=== PATIENT | male | born 1945 | race Caucasian/White ===

== ENCOUNTER 2019-11-20 20:31 | Emergency (ER) | payer OTHER, SELFPAY ==
[2019-11-20] VITALS (10 sets, daily range): BP systolic 104–113; BP diastolic 56–73; PULSE 71–87; RESP 18–25; TEMP 36.8; O2SAT 92–95; BMI 26.0
[2019-11-20] MEDS: SODIUM CHLORIDE 0.9% 2,328 ML 776 ML IV (22:00)
[2019-11-20 22:05] LABS: Lactate (Lactic Acid) 1.2 mmol/L (0.7-2.1)
[2019-11-20 22:06] LABS: Add Manual Diff / Slide Review YES; Hematocrit 41.6 % (41-53); Hemoglobin 14.1 g/dL (13.5-17.5); Mean Corpuscular HGB Conc 33.9 % (30-36); Mean Corpuscular Hemoglobin 31.8 PG (26-34); Mean Corpuscular Volume 93.7 fL (80-100); Platelet Count 133 X10^3/uL (150-400); Red Blood Cell Count 4.43 X10^6/uL (4.5-5.9); Red Cell Distribution Width 13.1 % (11.6-14.8)
[2019-11-20 22:09] LABS: Alanine Aminotransferase 20 IU/L (<50); Albumin 3.7 g/dL (3.5-5.0); Albumin Globulin Ratio 1.2 (1.0-2.8); Alkaline Phosphatase 86 U/L (38-126); Aspartate Aminotransferase 29 IU/L (17-59); Bilirubin Total 1.5 mg/dL (0.2-1.3); Blood Urea Nitrogen 24 mg/dL (9-20); Calcium 9.2 mg/dL (8.4-10.2); Carbon Dioxide 20 mmol/L (22-32); Chloride 102 mmol/L (98-107); Estimated Glomerular Filt Rate > 60.0 mL/min (>60); Globulin 3.2 g/dL (1.7-4.1); Glucose 128 mg/dL (80-110); HEMOLYSIS < 15 (0-50); Potassium 3.6 mmol/L (3.4-5.1); Sodium 132 mmol/L (137-145); Total Protein 6.9 g/dL (6.3-8.2)
--- NOTE | 2019-11-20 22:35 | ED_ITS ---
HPI - Fever General Chief Complaint: Fever Stated Complaint: hot/cold, shakes Time Seen by Provider: 11/20/19 21:00 Source: patient and family Mode of arrival: Wheelchair Limitations: no limitations History of Present Illness HPI Narrative: 73-year-old male nonsmoker with noncontributory medical history presents with his in the chief complaint of shaking and chills in the absence of measured fever since yesterday. He has had urinary frequency and urgency but denies other symptoms such as runny nose, sore throat or cough. He has had no chest pain or shortness of breath. He denies nausea, vomiting or carmina rrhea. He denies any history of the same. He is visiting from [place], appear to use his bow and elected to come back to [place] when he started feeling poorly. He states the rigors have been controlled with Tylenol but return once the Tylenol wears off, approximately every 4-6 hours. MD complaint: other Onset (ago): day(s) Temperature Source: subjective Associated symptoms: chills and rigors Relieving factors: nothing Exacerbating factors: nothing Treatments prior to arrival fever: none Related Data Previous Rx's Medication Instructions Recorded cephalexin [Keflex] 500 mg PO QID 7 Days #28 cap 11/20/19 Allergies Allergy/AdvReac Type Severity Reaction Status Date / Time No Known Drug Allergies Allergy Verified 11/20/19 21:01 Review of Systems Constitutional Constitutional: Reports chills, Denies fatigue, Denies fever(s), Denies frequent falls, Denies lethargy and Denies weakness Eyes Eyes: Denies change in vision, Denies eye discharge, Denies irritation and Denies loss of vision ENT Ears, Nose, Mouth, and Throat: Denies change in voice, Denies dizziness, Denies neck pain, Denies sore throat and Denies throat swelling Cardiovascular Cardiovascular: Denies chest pain, Denies irregular heart rhythm, Denies lightheadedness, Denies palpitations, Denies dyspnea, Denies dyspnea on exertion and Denies orthopnea Respiratory Respiratory: Denies cough, Denies dyspnea, Denies dyspnea on exertion and Denies wheezing Gastrointestinal Gastrointestinal: Denies abdominal pain, Denies change in bowel habits, Denies diarrhea, Denies nausea and Denies vomiting Genitourinary Genitourinary: Reports difficulty urinating and Reports dysuria Genitourinary: Reports dysuria Musculoskeletal Musculoskeletal: Denies neck pain and Denies numbness Integumentary/Breasts Skin/Breast: Denies pruritus, Denies erythema, Denies rash and Denies wounds Neurologic Neurologic: Denies behavioral changes, Denies confusion, Denies dizziness, Denies frequent falls, Denies loss of vision, Denies numbness and Denies weakness Psychiatric Psychiatric: Denies anxiety, Denies behavioral changes, Denies confusion, Denies depression, Denies homicidal ideation and Denies suicidal ideation Endocrine Endocrine: Denies fatigue, Denies flushing and Denies palpitations Hematologic/Lymphatic Hematologic/Lymphatic: Denies easy bruising Allergic/Immunologic Allergic/Immunologic: Denies urticaria, Denies throat swelling and Denies wheezing Patient History Social History Smoking Status: Never smoker Smoking Status: Never smoker alcohol intake frequency: 0-2 drinks per day Substance Use Type: does not use Exam Narrative Exam Narrative: GENERAL: [73] year old patient appears stated age. Well- nourished, well-developed patient, in mild distress. HEAD: Atraumatic. Normocephalic. EYES: Pupils equal round and reactive. Extraocular motions intact. No scleral icterus. No injection or drainage. ENT: Nose without bleeding, purulent drainage. Throat without erythema, tonsillar hypertrophy or exudate. Airway patent. NECK: Trachea midline. Non tender CARDIOVASCULAR: Regular rate and rhythm without murmurs, gallops, or rubs. RESPIRATORY: Clear to auscultation. Breath sounds equal bilaterally. No wheezes, rales, or rhonchi. GASTROINTESTINAL: Abdomen soft, non-tender, nondistended. EXTREMITIES: No edema or joint tenderness. BACK: Nontender without deformity or crepitance. No flank tenderness. NEURO: AOx3. SKIN: No rash or erythema of visible areas Initial Vital Signs Initial Vital Signs: Vital Signs Pulse Oximetry 92 11/20/19 20:50 Course Orders Ordered: ED Orders 11/20/19 21:23 Complete Blood Count AUTO DIFF Stat Comprehensive Metabolic Panel Stat Lactate (Lactic Acid) Stat Procalcitonin Stat 11/20/19 22:05 Blood Culture Stat 11/20/19 23:00 Urinalysis and Microscopic Stat Urine Culture Stat Sodium Chloride (Normal Saline 0.9%) 2,328 mls @ 776 mls/hr 30 ml/kg infuse over 3 hr (2328 ml) IV NOW ONE Stop: 11/21/19 00:25 Last Admin: 11/20/19 22:00 Dose: 776 mls/hr Documented by: LUZ ELENA Discontinued Medications Ceftriaxone Sodium/Dextrose (Rocephin) 1 gm in 50 mls @ 100 mls/hr IV NOW ONE Stop: 11/20/19 23:59 Last Admin: 11/20/19 23:36 Dose: 100 mls/hr Documented by: HOLLY Ketorolac Tromethamine (Toradol) 15 mg IV NOW ONE Stop: 11/20/19 23:43 Last Admin: 11/20/19 23:48 Dose: 15 mg Documented by: HOLLY Vital Signs Vital signs: Vital Signs - 8 hr 11/20/19 20:50 11/20/19 20:51 11/20/19 20:56 Temperature 98.3 F Pulse Rate 87 86 Respiratory Rate 18 Blood Pressure 113/61 113/61 Pulse Oximetry 92 92 92 11/20/19 21:00 11/20/19 21:30 11/20/19 22:00 Temperature Pulse Rate 82 75 73 Respiratory Rate Blood Pressure 108/58 L Pulse Oximetry 94 95 93 11/20/19 22:06 11/20/19 22:30 11/20/19 23:00 Temperature Pulse Rate 71 71 74 Respiratory Rate 24 21 25 H Blood Pressure 104/73 105/56 L 108/60 Pulse Oximetry 95 95 93 11/20/19 23:30 Temperature Pulse Rate 72 Respiratory Rate 23 Blood Pressure 106/59 L Pulse Oximetry 95 MDM - Fever Lab Data Result diagrams: 11/20/19 21:23 11/20/19 21:23 Labs: Lab Results 11/20/19 11/20/19 11/20/19 Range/Units 21:23 21:23 21:23 WBC 8.0 (4.5-11.0) X10^3/uL RBC 4.43 L (4.5-5.9) X10^6/uL Hgb 14.1 (13.5-17.5) g/dL Hct 41.6 (41-53) % MCV 93.7 (80-100) fL MCH 31.8 (26-34) PG MCHC 33.9 (30-36) % RDW 13.1 (11.6-14.8) % Plt Count 133 L (150-400) X10^3/uL Neut % (Auto) Not Reportable Lymph % (Auto) Not Reportable Wright % (Auto) Not Reportable Eos % (Auto) Not Reportable Baso % (Auto) Not Reportable Lymph # (Auto) Not Reportable Wright # (Auto) Not Reportable Baso # (Auto) Not Reportable Total Counted 100 Seg Neutrophils % 80.0 H (38-70) % Band Neutrophils % 13.0 H (3-7) % Lymphocytes % (Manual) 2.0 L (25-45) % Monocytes % (Manual) 5.0 (2-11) % Neutrophils # (Manual) 7440 H (4869-3144) /uL RBC Morphology See below Sodium 132 L (137-145) mmol/L Potassium 3.6 (3.4-5.1) mmol/L Chloride 102 (98-107) mmol/L Carbon Dioxide 20 L (22-32) mmol/L BUN 24 H (9-20) mg/dL Creatinine 1.00 (0.66-1.25) mg/dL Estimated GFR > 60.0 (>60) mL/min BUN/Creatinine Ratio 24.0 H (6-22) Glucose 128 H (80-110) mg/dL Lactate (0.7-2.1) mmol/L Calcium 9.2 (8.4-10.2) mg/dL Total Bilirubin 1.5 H (0.2-1.3) mg/dL AST 29 (17-59) IU/L ALT 20 (<50) IU/L Alkaline Phosphatase 86 (38-126) U/L Total Protein 6.9 (6.3-8.2) g/dL Albumin 3.7 (3.5-5.0) g/dL Globulin 3.2 (1.7-4.1) g/dL Albumin/Globulin Ratio 1.2 (1.0-2.8) Procalcitonin 1.41 H (<0.5) ng/mL Urine Color Urine Appearance Urine pH (4.5-8.0) Ur Specific Elbert (1.000-1.035) Urine Protein (Negative) Urine Glucose (UA) (Negative) g/dL Urine Ketones (NEGATIVE) Urine Occult Blood (Negative) Urine Nitrate (Negative) Urine Bilirubin (NEGATIVE) Urine Urobilinogen (0.2) E.U./dL Ur Leukocyte Esterase (NEGATIVE) Urine RBC (0-5/HPF) Urine WBC (0-5/HPF) Ur Squamous Epith Cells (0-5/HPF) Urine Bacteria (None) Ur Culture Indicated? COVID-19 PCR (Negative) 11/20/19 11/20/19 11/20/19 Range/Units 21:23 21:23 23:00 WBC (4.5-11.0) X10^3/uL RBC (4.5-5.9) X10^6/uL Hgb (13.5-17.5) g/dL Hct (41-53) % MCV (80-100) fL MCH (26-34) PG MCHC (30-36) % RDW (11.6-14.8) % Plt Count (150-400) X10^3/uL Neut % (Auto) Lymph % (Auto) Wright % (Auto) Eos % (Auto) Baso % (Auto) Lymph # (Auto) Wright # (Auto) Baso # (Auto) Total Counted Seg Neutrophils % (38-70) % Band Neutrophils % (3-7) % Lymphocytes % (Manual) (25-45) % Monocytes % (Manual) (2-11) % Neutrophils # (Manual) (8394-0296) /uL RBC Morphology Sodium (137-145) mmol/L Potassium (3.4-5.1) mmol/L Chloride (98-107) mmol/L Carbon Dioxide (22-32) mmol/L BUN (9-20) mg/dL Creatinine (0.66-1.25) mg/dL Estimated GFR (>60) mL/min BUN/Creatinine Ratio (6-22) Glucose (80-110) mg/dL Lactate 1.2 (0.7-2.1) mmol/L Calcium (8.4-10.2) mg/dL Total Bilirubin (0.2-1.3) mg/dL AST (17-59) IU/L ALT (<50) IU/L Alkaline Phosphatase (38-126) U/L Total Protein (6.3-8.2) g/dL Albumin (3.5-5.0) g/dL Globulin (1.7-4.1) g/dL Albumin/Globulin Ratio (1.0-2.8) Procalcitonin (<0.5) ng/mL Urine Color Yellow Urine Appearance Clear Urine pH 5.5 (4.5-8.0) Ur Specific Elbert <=1.005 (1.000-1.035) Urine Protein Trace H (Negative) Urine Glucose (UA) Negative (Negative) g/dL Urine Ketones 1+ H (NEGATIVE) Urine Occult Blood 1+ H (Negative) Urine Nitrate Positive (Negative) Urine Bilirubin Negative (NEGATIVE) Urine Urobilinogen 0.2 (0.2) E.U./dL Ur Leukocyte Esterase 1+ H (NEGATIVE) Urine RBC 0-1/hpf (0-5/HPF) Urine WBC 10-30/hpf H (0-5/HPF) Ur Squamous Epith Cells 1-5 /hpf (0-5/HPF) Urine Bacteria Many (>30) H (None) Ur Culture Indicated? Specimen cultured COVID-19 PCR Negative (Negative) MDM Narrative Medical decision making narrative: Patient with very reassuring physical exam, labs and vital signs. He is not septic nor dizzy a significant risk for immun ocompromise. Urine seems to be the clear source. He is given antibiotics here, prescription for the week, return precautions and has had his questions answered to his apparent satisfaction. He is in complete understanding and agreement with the plan Discharge Plan Departure Patient Disposition: Home Clinical Impression: Acute pyelonephritis Instructions: DI for Kidney Infection, DI for Urinary Tract Infection (UTI), DI for Fever (Symptom) -- Adult Activity Restrictions/Additional Instructions: *You have been diagnosed with [UTI with rigors and likely pyelonephritis] *What to do: *Take medications as directed *Follow up with your primary care provider in 2-3 days, call for an appointment. Let them know you were seen in the Emergency Department and that we ask that you be seen in follow up *Return to ER if you should have any new, worsening or concerning symptoms Prescriptions: New cephalexin [Keflex] 500 mg capsule 500 mg PO QID 7 Days Qty: 28 RF: 0
[2019-11-20 22:38] LABS: Procalcitonin 1.41 ng/mL (<0.5)
[2019-11-20 22:52] LABS: COVID19 -Nasal RAPID Negative (Negative)
[2019-11-20 23:10] LABS: Appearance Urine UA CLEAR; Bilirubin Urine UA NEGATIVE (NEGATIVE); Color Urine UA YELLOW; Glucose Urine UA NEGATIVE (Negative); Ketones Urine UA 1+ (NEGATIVE); Leukocyte Esterase Urine UA 1+ (NEGATIVE); Nitrite Urine UA POSITIVE (Negative); Occult Blood Urine UA 1+ (Negative); Protein Urine UA TRACE (Negative); Specific Gravity Urine UA <=1.005 (1.000-1.035); Urobilinogen Urine UA 0.2 E.U./dL (0.2); pH Urine UA 5.5 (4.5-8.0)
[2019-11-20 23:28] LABS: Bacteria Urine Many (>30); Culture Indicated Urine Specimen Cultured; RBC Urine 0-1/HPF (0-5/HPF); Squamous Epithelial Cell Urine 1-5 /HPF (0-5/HPF); WBC Urine 10-30/HPF (0-5/HPF)
[2019-11-20] MEDS: CEFTRIAXONE 1 GM/50 ML FROZ.PIGGY IV (23:36)
[2019-11-20 23:40] LABS: Neutrophils Absolute Manual 7440 /uL (3000-5900); Total Cells Counted 100
[2019-11-20] MEDS: KETOROLAC 60 MG/2 ML VIAL 15 MG IV (23:48)
[2019-11-21] VITALS: BP 109/56; PULSE 64; RESP 22; O2SAT 94
[2019-11-21 00:30] VITALS: BP 105/58; PULSE 63; RESP 20; O2SAT 95
[2019-11-21 01:42] VITALS: BP 108/58; PULSE 66; RESP 18; O2SAT 96
== END 2019-11-21 01:43 | disposition home or self-care (01) ==
PROVIDERS: Emergency Provider Emergency Medicine
DX: N10 Acute pyelonephritis (principal); R30.0 Dysuria; R50.9 Fever, unspecified
CPT/HCPCS: 36415; 80053; 81001; 83605; 84145; 85025; 87040; 87077; 87086; 87186; 87635; 96361; 96365; 96375; 99284; J1885

== ENCOUNTER 2019-11-21 12:48 | Observation (INO) | payer OTHER, SELFPAY ==
[2019-11-21] VITALS (17 sets, daily range): BP systolic 101–121; BP diastolic 50–67; PULSE 55–86; RESP 17–31; TEMP 36.5–39.2; O2SAT 92–98; BMI 26.0
--- NOTE | 2019-11-21 13:55 | PC.NURSE ---
patient was discharged this morning and came back today because he began having another episode of chills, sweating, and uncontrollable shaking.
[2019-11-21 14:29] LABS: Add Manual Diff / Slide Review NO; Basophils Absolute Auto 0 /uL (0-100); Basophils Percent Auto 0.4 % (0-2); Eosinophils Absolute Auto 0 /uL (0-450); Eosinophils Percent Auto 0.4 % (2-4); Hemoglobin 13.4 g/dL (13.5-17.5); Lymphocytes Absolute Auto 300 /uL (1100-4500); Lymphocytes Percent Auto 7.6 % (25-40); Mean Corpuscular HGB Conc 33.4 % (30-36); Mean Corpuscular Hemoglobin 31.3 PG (26-34); Mean Corpuscular Volume 93.6 fL (80-100); Monocytes Absolute Auto 300 /uL (0-900); Monocytes Percent Auto 6.4 % (3-14); Neutrophils Absolute Auto 3500 /uL (1500-7000); Neutrophils Percent Auto 85.2 % (50-75); Platelet Count 103 X10^3/uL (150-400); Red Blood Cell Count 4.27 X10^6/uL (4.5-5.9); Red Cell Distribution Width 13.2 % (11.6-14.8); White Blood Cell Count 4.1 X10^3/uL (4.5-11.0)
[2019-11-21] MEDS: SODIUM CHLORIDE 0.9% 1,000 ML 1000 ML IV ×2 (14:33→15:57)
[2019-11-21 14:34] LABS: Lactate (Lactic Acid) 2.2 mmol/L (0.7-2.1)
[2019-11-21 14:35] LABS: Alanine Aminotransferase 19 IU/L (<50); Albumin 3.4 g/dL (3.5-5.0); Albumin Globulin Ratio 1.1 (1.0-2.8); Alkaline Phosphatase 86 U/L (38-126); Aspartate Aminotransferase 32 IU/L (17-59); BUN Creatinine Ratio 27.1 (6-22); Bilirubin Total 1.1 mg/dL (0.2-1.3); Blood Urea Nitrogen 23 mg/dL (9-20); Calcium 8.7 mg/dL (8.4-10.2); Carbon Dioxide 20 mmol/L (22-32); Chloride 103 mmol/L (98-107); Estimated Glomerular Filt Rate > 60.0 mL/min (>60); Globulin 3.2 g/dL (1.7-4.1); Glucose 101 mg/dL (80-110); HEMOLYSIS < 15 (0-50); Potassium 3.8 mmol/L (3.4-5.1); Sodium 133 mmol/L (137-145); Total Protein 6.6 g/dL (6.3-8.2)
[2019-11-21] MEDS: CEFEPIME 2 GM in SODIUM CHLORIDE 0.9% 100 ML 200 ML IV (14:37)
[2019-11-21 15:01] LABS: Appearance Urine UA CLEAR; Bilirubin Urine UA NEGATIVE (NEGATIVE); Color Urine UA YELLOW; Glucose Urine UA NEGATIVE (Negative); Ketones Urine UA 3+ (NEGATIVE); Leukocyte Esterase Urine UA 1+ (NEGATIVE); Nitrite Urine UA NEGATIVE (Negative); Occult Blood Urine UA TRACE-LYSED (Negative); Protein Urine UA 1+ (Negative); Urobilinogen Urine UA 0.2 E.U./dL (0.2)
[2019-11-21 15:21] LABS: Amorphous Sediment Urine 2+; RBC Urine 0-1/HPF (0-5/HPF); Squamous Epithelial Cell Urine 1-5 /HPF (0-5/HPF); WBC Urine 30-100/HPF (0-5/HPF)
[2019-11-21 15:22] LABS: Bacteria Urine Moderate (10-30); Culture Indicated Urine Specimen Cultured; Granular Casts Urine 1-5/LPF; Mucus Urine 2+ (Negative)
--- NOTE | 2019-11-21 15:30 | ED_ITS ---
HPI - Male Genitourinary General Chief complaint: Urogenital-Male Stated complaint: here lastnight/ drip antibiotic/ cold Time Seen by Provider: 11/21/19 13:40 Source: patient Mode of arrival: Wheelchair Limitations: physical limitation History of Present Illness HPI Narrative: CC: Rigors with sudden onset of weakness. HPI: The patient is a 73-year-old male who was seen in the emergency department and diagnosed to have pyelonephritis. He was on his way to the pharmacy when he developed cold chills with shaking rigors. The patient was administered Rocephin arm for his urinary tract infection. He denied get his prescriptions filled. The patient in the last 2 days has had 4 episodes of shaking chills and rigors with shivering for a long period of time the patient states he had difficulty in becoming warm. His [place] it test was negative when seen in the emergency department last night. He has feltfeverish, with chills sweats and rigors. He has had minimal headache. He has had shortness of breath without any cough or chest pain. He has had no palpitations dizziness or felt faint. He has had no significant back ache. He has had intermittent diarrhea or loose stools that were the consistency of toothpaste. He has had no nausea or vomiting. He complains of increased urinary frequency urgency and dysuria. The patient when coming back to the hospital was so weak he did not feel that he cou ld walk all the way from the car to the hospital. He denies having any allergies. He has had no incontinence of urine. Related Data Home Medications Medication Instructions Recorded Confirmed rosuvastatin 5 mg PO DAILY 11/21/19 11/21/19 Allergies Allergy/AdvReac Type Severity Reaction Status Date / Time No Known Drug Allergies Allergy Verified 11/20/19 21:01 Review of Systems Review of Systems Narrative: Patient's review of systems were all negative except for those mentioned in the history of present illness. Patient History Social History household members: spouse Smoking Status: Never smoker Smoking Status: Never smoker alcohol intake frequency: 0-2 drinks per day Substance Use Type: does not use Exam Narrative Exam Narrative: PHYSICAL EXAM: CONSTITUTIONAL: Awake, Alert, Oriented, Coherent, Cooperative in NAD. The patient is mildly diaphoretic and his skin is very hot without erythema or flushing appreciated. There is no skin rash appreciated. HEAD: AT/NC EENT: PERRL, FROM of eyes, no icterus. NOSE:No epistaxis or nasal drainage MOUTH:Oral mucosa is moist and pink, NECK: Supple, no obvious JVD, Trachea is midline without stridor, no palpable LN. SPINE: Palpation of the cervical, Thoracic, Lumbar or Sacral spine reveals no gross deformity or tenderness. No CVA tenderness. THORAX: No deformity, retractions, chest wall tenderness. LUNGS: Clear, symmetrical breath sounds without respiratory distress. HEART: Normal heart tones, regular rhythm mildly tachycardic with a grade 1/6 systolic murmur along the left sternal border. ABDOMEN: Soft, non-tender, normal bowel sounds without guarding, rebound, rigidity or palpable mass. The patient has an inguinal hernia scar in his left groin that is without erythema or warmth and minimal tenderness to palpation without any palpable mass. LYMPHATIC: no palpable lymph nodes or spleen. EXTREMITIES: No edema, deformity, tenderness or cyanosis. SKIN: No rash, bruising, petechiae or purpura. The skin over the patient's back is very warm and diaphoretic NEURO: Awake, alert, oriented, conversive, cranial nerves II-XII are symmetrical , moves all 4 extremities and is ambulatory. MENTAL HEALTH: Does not appear anxious or depressed. Initial Vital Signs Initial Vital Signs: Vital Signs Temperature 102.6 F H 11/21/19 12:56 Respiratory Rate 28 H 11/21/19 12:56 Pulse Oximetry 96 11/21/19 12:56 Course Course Course Narrative: 1530: No costovertebral angle tenderness. The patient has a grade 1/6 systolic ejection murmur along the left sternal border. Patient is profusely diaphoretic and his skin is extremely hot. The patient is being treated as though he is septic with an elevated lactic acid of 2.2. A call will be placed to Dr. Herrera the hospitalist on-call to discuss admitting the patient observation status. At the present time he is having no pain or discomfort. The patient had a hernia repair in his left groin in September 1551: I discussed the patient with Dr. Mahoney who agrees to admit the patient observation status if the CT scan does not reveal that he has any abscess involving his kidneys or his pelvis and abdomen. 1705: The patient's CT of the abdomen has been completed however the report per Radiology remains pending. 174: I a.m. unable to obtain the report from PACS concerning the CT of the patient's abdomen. I spoke directly with the radiologist who states that there was no evidence of hydronephrosis or intra-abdominal pelvic abscess. There were some inflammatory changes noted in the patient's left inguinal area which corresponds to the area of his inguinal herniorrhaphy which was repaired in September 28. There is no evidence of cellulitis at this time on physical exam. His hernia scar is firm and mildly tender. Orders Ordered: ED Orders 11/21/19 13:53 CRP [C-Reactive Protein Quant] Stat Complete Blood Count AUTO DIFF Stat Comprehensive Metabolic Panel Stat Erythrocyte Sedimentation Rate Stat Lactate (Lactic Acid) Stat Procalcitonin Stat 11/21/19 14:40 Blood Culture Stat 11/21/19 14:43 Urinalysis and Microscopic Stat Urine Culture Stat 11/21/19 15:53 CT abdomen pelvis w con Stat Acetaminophen (Tylenol) 650 mg PO Q4HR PRN PRN Reason: Fever/Mild Pain (1-3) Al Hydrox/Mg Hydrox/Simethicone (Maalox Plus) 30 ml PO Q6HR PRN PRN Reason: Dyspepsia Bisacodyl (Dulcolax) 10 mg MI DAILY PRN PRN Reason: Constipation Calcium Carbonate (Tums) 1,000 mg PO Q4HR PRN PRN Reason: Dyspepsia Docusate Sodium (Colace) 100 mg PO BID PRN PRN Reason: Constipation Enoxaparin Sodium (Lovenox) 40 mg SUBCUT DAILY RICK Meropenem (Merrem) 1 gm in 50 mls @ 100 mls/hr IV Q8H RICK Sodium Chloride (Normal Saline 0.9%) 1,000 mls @ 100 mls/hr IV CONT RICK Ketorolac Tromethamine (Toradol) 15 mg IV Q6HR PRN PRN Reason: Pain, Moderate (4-6) Stop: 11/26/19 19:44 Naloxone HCl (Narcan) 0.2 mg IV Q2MIN PRN PRN Reason: Opiate Reversal Ondansetron HCl (Zofran) 4 mg IV Q8HR PRN PRN Reason: Nausea And Vomiting Discontinued Medications Cefepime HCl 2 gm/ Sodium (Chloride) 100 mls @ 200 mls/hr IV NOW ONE Stop: 11/21/19 14:15 Last Infusion: 11/21/19 15:14 Dose: 0 mls/hr Documented by: LUZ ELENA Admin: 11/21/19 14:37 Dose: 200 mls/hr Documented by: LUZ ELENA Sodium Chloride (Normal Saline 0.9%) 1,000 mls @ 1,000 mls/hr IV BOLUS ONE Stop: 11/21/19 15:13 Last Infusion: 11/21/19 15:56 Dose: 0 mls/hr Documented by: LUZ ELENA Admin: 11/21/19 14:33 Dose: 1,000 mls/hr Documented by: LUZ ELENA Sodium Chloride (Normal Saline 0.9%) 1,000 mls @ 1,000 mls/hr IV BOLUS ONE Stop: 11/21/19 16:03 Last Infusion: 11/21/19 18:11 Dose: 0 mls/hr Documented by: LUZ ELENA Admin: 11/21/19 15:57 Dose: 1,000 mls/hr Documented by: LUZ ELENA Sodium Chloride (Normal Saline 0.9%) 1,000 mls @ 150 mls/hr IV CONT RICK Last Admin: 11/21/19 16:00 Dose: Not Given Documented by: LUZ ELENA Sodium Chloride (Normal Saline 0.9%) 1,000 mls @ 150 mls/hr IV CONT RICK Last Infusion: 11/21/19 18:12 Dose: 0 mls/hr Documented by: LUZ ELENA Admin: 11/21/19 17:24 Dose: 150 mls/hr Documented by: LUZ ELENA Meropenem (Merrem) 1 gm in 50 mls @ 100 mls/hr IV Q8H RICK Last Admin: 11/21/19 20:21 Dose: Not Given Documented by: ANGELA Vital Signs Vital signs: Vital Signs - 8 hr 11/21/19 12:56 11/21/19 13:41 11/21/19 14:00 Temperature 102.6 F H Pulse Rate 86 83 Respiratory Rate 28 H 27 H 23 Blood Pressure Pulse Oximetry 96 93 93 11/21/19 14:30 11/21/19 15:00 11/21/19 15:25 Temperature Pulse Rate 79 79 Respiratory Rate 27 H 28 H Blood Pressure 101/54 L 107/54 L Pulse Oximetry 93 92 96 11/21/19 15:30 11/21/19 16:18 11/21/19 16:30 Temperature Pulse Rate 74 74 79 Respiratory Rate 25 H 30 H 31 H Blood Pressure 107/56 L 114/55 L Pulse Oximetry 96 95 11/21/19 16:31 11/21/19 17:00 11/21/19 17:30 Temperature Pulse Rate 76 68 69 Respiratory Rate 26 H 19 23 Blood Pressure 121/55 L 111/59 L 118/56 L Pulse Oximetry 98 96 97 11/21/19 18:00 Temperature Pulse Rate 55 L Respiratory Rate 21 Blood Pressure 107/59 L Pulse Oximetry 96 MDM - Male Genitourinary Medical Records Attestation: I reviewed the patient's medical records. Lab Data Attestation: I reviewed the patient's lab results. Result diagrams: 11/21/19 13:53 11/21/19 13:53 Labs: Lab Results 11/21/19 11/21/19 11/21/19 Range/Units 13:53 13:53 13:53 WBC 4.1 L (4.5-11.0) X10^3/uL RBC 4.27 L (4.5-5.9) X10^6/uL Hgb 13.4 L (13.5-17.5) g/dL Hct 40.0 L (41-53) % MCV 93.6 (80-100) fL MCH 31.3 (26-34) PG MCHC 33.4 (30-36) % RDW 13.2 (11.6-14.8) % Plt Count 103 L (150-400) X10^3/uL Neut % (Auto) 85.2 H (50-75) % Lymph % (Auto) 7.6 L (25-40) % [place] % (Auto) 6.4 (3-14) % Eos % (Auto) 0.4 L (2-4) % Baso % (Auto) 0.4 (0-2) % Neut # (Auto) 3500 (7495-0185) /uL Lymph # (Auto) 300 L (2382-9070) /uL [place] # (Auto) 300 (0-900) /uL Eos # (Auto) 0 (0-450) /uL Baso # (Auto) 0 (0-100) /uL ESR (0-15) MM/HR Sodium 133 L (137-145) mmol/L Potassium 3.8 (3.4-5.1) mmol/L Chloride 103 (98-107) mmol/L Carbon Dioxide 20 L (22-32) mmol/L BUN 23 H (9-20) mg/dL Creatinine 0.85 (0.66-1.25) mg/dL Estimated GFR > 60.0 (>60) mL/min BUN/Creatinine Ratio 27.1 H (6-22) Glucose 101 (80-110) mg/dL Lactate 2.2 H (0.7-2.1) mmol/L Calcium 8.7 (8.4-10.2) mg/dL Total Bilirubin 1.1 (0.2-1.3) mg/dL AST 32 (17-59) IU/L ALT 19 (<50) IU/L Alkaline Phosphatase 86 (38-126) U/L C-Reactive Protein (<1.0) mg/dL Total Protein 6.6 (6.3-8.2) g/dL Albumin 3.4 L (3.5-5.0) g/dL Globulin 3.2 (1.7-4.1) g/dL Albumin/Globulin Ratio 1.1 (1.0-2.8) Procalcitonin (<0.5) ng/mL Urine Color Urine Appearance Urine pH (4.5-8.0) Ur Specific [place] (1.000-1.035) Urine Protein (Negative) Urine Glucose (UA) (Negative) g/dL Urine Ketones (NEGATIVE) Urine Occult Blood (Negative) Urine Nitrate (Negative) Urine Bilirubin (NEGATIVE) Urine Urobilinogen (0.2) E.U./dL Ur Leukocyte Esterase (NEGATIVE) Urine RBC (0-5/HPF) Urine WBC (0-5/HPF) Ur Squamous Epith Cells (0-5/HPF) Amorphous Sediment Urine Bacteria (None) Granular Casts (None) Urine Mucus (Negative) Ur Culture Indicated? COVID-19 PCR (Negative) 11/21/19 11/21/19 11/21/19 Range/Units 13:53 13:53 13:53 WBC (4.5-11.0) X10^3/uL RBC (4.5-5.9) X10^6/uL Hgb (13.5-17.5) g/dL Hct (41-53) % MCV (80-100) fL MCH (26-34) PG MCHC (30-36) % RDW (11.6-14.8) % Plt Count (150-400) X10^3/uL Neut % (Auto) (50-75) % Lymph % (Auto) (25-40) % [place] % (Auto) (3-14) % Eos % (Auto) (2-4) % Baso % (Auto) (0-2) % Neut # (Auto) (2291-4365) /uL Lymph # (Auto) (9328-1532) /uL [place] # (Auto) (0-900) /uL Eos # (Auto) (0-450) /uL Baso # (Auto) (0-100) /uL ESR 20 H (0-15) MM/HR Sodium (137-145) mmol/L Potassium (3.4-5.1) mmol/L Chloride (98-107) mmol/L Carbon Dioxide (22-32) mmol/L BUN (9-20) mg/dL Creatinine (0.66-1.25) mg/dL Estimated GFR (>60) mL/min BUN/Creatinine Ratio (6-22) Glucose (80-110) mg/dL Lactate (0.7-2.1) mmol/L Calcium (8.4-10.2) mg/dL Total Bilirubin (0.2-1.3) mg/dL AST (17-59) IU/L ALT (<50) IU/L Alkaline Phosphatase (38-126) U/L C-Reactive Protein 17.3 H (<1.0) mg/dL Total Protein (6.3-8.2) g/dL Albumin (3.5-5.0) g/dL Globulin (1.7-4.1) g/dL Albumin/Globulin Ratio (1.0-2.8) Procalcitonin 5.47 H (<0.5) ng/mL Urine Color Urine Appearance Urine pH (4.5-8.0) Ur Specific [place] (1.000-1.035) Urine Protein (Negative) Urine Glucose (UA) (Negative) g/dL Urine Ketones (NEGATIVE) Urine Occult Blood (Negative) Urine Nitrate (Negative) Urine Bilirubin (NEGATIVE) Urine Urobilinogen (0.2) E.U./dL Ur Leukocyte Esterase (NEGATIVE) Urine RBC (0-5/HPF) Urine WBC (0-5/HPF) Ur Squamous Epith Cells (0-5/HPF) Amorphous Sediment Urine Bacteria (None) Granular Casts (None) Urine Mucus (Negative) Ur Culture Indicated? COVID-19 PCR (Negative) 11/21/19 11/21/19 11/21/19 Range/Units 14:43 16:26 16:42 WBC (4.5-11.0) X10^3/uL RBC (4.5-5.9) X10^6/uL Hgb (13.5-17.5) g/dL Hct (41-53) % MCV (80-100) fL MCH (26-34) PG MCHC (30-36) % RDW (11.6-14.8) % Plt Count (150-400) X10^3/uL Neut % (Auto) (50-75) % Lymph % (Auto) (25-40) % [place] % (Auto) (3-14) % Eos % (Auto) (2-4) % Baso % (Auto) (0-2) % Neut # (Auto) (1450-4199) /uL Lymph # (Auto) (3741-7897) /uL [place] # (Auto) (0-900) /uL Eos # (Auto) (0-450) /uL Baso # (Auto) (0-100) /uL ESR (0-15) MM/HR Sodium (137-145) mmol/L Potassium (3.4-5.1) mmol/L Chloride (98-107) mmol/L Carbon Dioxide (22-32) mmol/L BUN (9-20) mg/dL Creatinine (0.66-1.25) mg/dL Estimated GFR (>60) mL/min BUN/Creatinine Ratio (6-22) Glucose (80-110) mg/dL Lactate 0.9 (0.7-2.1) mmol/L Calcium (8.4-10.2) mg/dL Total Bilirubin (0.2-1.3) mg/dL AST (17-59) IU/L ALT (<50) IU/L Alkaline Phosphatase (38-126) U/L C-Reactive Protein (<1.0) mg/dL Total Protein (6.3-8.2) g/dL Albumin (3.5-5.0) g/dL Globulin (1.7-4.1) g/dL Albumin/Globulin Ratio (1.0-2.8) Procalcitonin (<0.5) ng/mL Urine Color Yellow Urine Appearance Clear Urine pH 5.0 (4.5-8.0) Ur Specific [place] 1.020 (1.000-1.035) Urine Protein 1+ H (Negative) Urine Glucose (UA) Negative (Negative) g/dL Urine Ketones 3+ H (NEGATIVE) Urine Occult Blood Trace-lysed (Negative) Urine Nitrate Negative (Negative) Urine Bilirubin Negative (NEGATIVE) Urine Urobilinogen 0.2 (0.2) E.U./dL Ur Leukocyte Esterase 1+ H (NEGATIVE) Urine RBC 0-1/hpf (0-5/HPF) Urine WBC 30-100/hpf H (0-5/HPF) Ur Squamous Epith Cells 1-5 /hpf (0-5/HPF) Amorphous Sediment 2+ Urine Bacteria Moderate (10-30) H (None) Granular Casts 1-5/lpf (None) Urine Mucus 2+ H (Negative) Ur Culture Indicated? Specimen cultured COVID-19 PCR Negative (Negative) ECG Data Attestation: I personally reviewed and interpreted this ECG as follows: Interpretation: The patient's EKG obtained at 2:04 p.m. reveals a sinus rhythm with a ventricular rate of 82. Intervals appear to be normal with a p.r. interval of 138 milliseconds QRS is 84 milliseconds duration QTC is 405 milliseconds. [place] is left. The patient has some atypical nonspecific ST depressions in leads I II AVF V4 V5 V6 V3. T-waves are flattened in V1. There are no other acute diagnostic ST or T-wave changes noted. Discharge Plan Departure Patient Disposition: Admitted as Observation Clinical Impression: Acute pyelonephritis, Rigors, Generalized weakness Fatigue Qualifiers: Fatigue type: unspecified Qualified Code(s): R53.83 - Other fatigue Urinary tract infection Qualifiers: Urinary tract infection type: acute cystitis Hematuria presence: without hematuria Qualified Code(s): N30.00 - Acute cystitis without hematuria Discharge Date/Time: 11/21/19 18:16 Admit Date/Time: 11/21/19 18:03 Admit Provider: Jason Mahoney
[2019-11-21 15:40] LABS: Procalcitonin 5.47 ng/mL (<0.5)
--- NOTE | 2019-11-21 15:53 | DI.CT.S_ITS ---
PROCEDURE: CT ABDOMEN PELVIS W CON INDICATIONS: Fever, sepsis, pyelonephritis r/o abscess TECHNIQUE: After the administration of intravenous contrast, 5 mm thick sections acquired from the diaphragm to the symphysis. 5 mm coronal and sagittal reformats were acquired. For radiation dose reduction, the following was used: automated exposure control, adjustment of mA and/or kV according to patient size. COMPARISON: None. FINDINGS: Image quality: Excellent. ABDOMEN: Lung bases: Lung bases are clear. Heart size is normal. Solid organs: Liver is normal in size and enhancement. Gallbladder negative . Biliary system is non dilated. Pancreas enhances normally. Spleen is normal in size and enhancement. No adrenal nodules. No hydronephrosis. Mild bilateral perinephric stranding which is technically age indeterminate. No urolithiasis identified. No abscess identified. Peritoneum and bowel: Bowel loops demonstrate normal wall thickness and caliber. No free fluid or air. Colonic diverticulosis is seen without evidence of acute complication. Normal appendix. Nodes and vessels: No retroperitoneal or mesenteric adenopathy by size criteria. Aorta and inferior vena cava are normal in size. Miscellaneous: No ventral hernias. PELVIS: Genitourinary: Bladder wall thickness is normal. Age-indeterminate inflammatory stranding seen within the left inguinal region. Bones: No suspicious bony lesions. No vertebral body compression fractures. IMPRESSION: No definite decreased renal cortical enhancement to suggest pyelonephritis. Age-indeterminate mild bilateral perinephric stranding which could be chronic however technically nonspecific No evidence of urinary obstruction Ill-defined inflammatory stranding present within the left inguinal region, which is also age indeterminate although recommend clinical correlation to exclude cellulitis. Normal appendix Incidental colonic diverticulosis. Dictated by: Kendell Quiñonez M.D. on 11/21/2019 at 16:27 Approved by: Kendell Quiñonez M.D. on 11/21/2019 at 16:32
[2019-11-21 16:08] LABS: Erythrocyte Sedimentation Rate 20 MM/HR (0-15)
[2019-11-21 16:10] LABS: C-Reactive Protein Quant 17.3 mg/dL (<1.0)
[2019-11-21 16:23] LABS: Reflexed Lactate in 2 Hours Y
[2019-11-21 17:02] LABS: Lactate 2HR (Lactic Acid Rflx) 0.9 mmol/L (0.7-2.1)
[2019-11-21] MEDS: SODIUM CHLORIDE 0.9% 1,000 ML 150 ML IV (17:24)
[2019-11-21 18:40] LABS: COVID19 -Nasal RAPID Negative (Negative)
--- NOTE | 2019-11-21 20:36 | P.HP_ITS ---
History of Present Illness History of Present Illness Date Patient Seen: 11/21/19 Time Patient Seen: 20:05 Chief complaint: here lastnight/ drip antibiotic/ cold Narrative: Mr. Ian Stapleton is a 73-year-old male with a history of hyperlipidemia who returns to the ER with a sudden onset of recurrent fevers and chills with associated rigors. The patient is in [place] and staying on his boat and postponed trip to the [facility] presenting to the ER yesterday 11/20/2019 for shaking chills without fever. The patient was evaluated in the emergency department and diagnosed with pyelonephritis and received Rocephin IV and prescription for Keflex for 7 days and discharged to home. The patient had not yet picked up his Keflex prescription and states he has been taking Tylenol with resolution of fevers and chills. Today upon arrival the patient has an elevated temp of 102.6? and reporting rigors. He denies complaints of nausea vomiting and has no back pain. Gram stain from urine sample obtained yesterday shows Gram-positive bacilli and greater than 100,000 CFU. The patient reports frequency and urgency leading to his ER visit yesterday but no other history of urological symptoms. He denies complaints of headaches or dizziness, nasal congestion or sore throat. Denies chest pain or palpitations and has no shortness of breath cough or wheezing. Patient reports no epigastric or abdominal pain, nausea or vomiting or diarrhea. The patient is physically active with no limitations. On arrival the ER patient is febrile with temperature 102.6?, heart rate of 79, pressure 101/54, respirations 20 an oxygen saturation 96% on room air. Imaging is obtained was CT of the abdomen pelvis finding mild perinephritic stranding, possibly chronic, no obstruction, ill-defined left inguinal stranding, incidental colonic diverticulosis. Twelve lead EKG shows a sinus rhythm without ectopy, left anterior fascicular block, no ischemia or infarct. On laboratory analysis the patient has white count 4.1 with elevated neutrophils at 85.2%, hemoglobin 13.4, hematocrit 40.0 and platelets of 103. Labs obtained yesterday find a white count of 8.0, platelets of 133 with 13.0 bands and neutrophils at 80.0%. On chemistries is sodium 133 with potassium 3.8, BUN of 23 and creatinine 0.85. His liver functions are all within normal limits with an album in of 3.4. He has an elevated ESR at 20, CRP at 17.3. Lactate on admission was 2.2 improved to 0.9 with 2 L normal saline. In the ER the patient received cefepime after blood cultures obtained. The patient is admitted to the medicine service for pyelonephritis. Patient History Medical History (Updated 11/21/19 @ 21:09 by STU Everett) Hyperlipidemia (Acute) Surgical History (Updated 11/21/19 @ 21:09 by STU Everett) History of inguinal hernia repair (Acute) Family & Social History Family History (Updated 11/21/19 @ 21:10 by STU Everett) Father No significant medical problems Mother Emphysema of lung Social History: household members spouse Prior Living Arrangements House Safety & Behavioral: Feels Safe in Current Yes Environment Been Physically Hurt or No Threatened By a Person Tobacco & Substance use: Smoking Status Never smoker alcohol intake frequency 0-2 drinks per day Substance Use Type does not use Meds Home Medications and Allergies Home Medications Medication Instructions Recorded Confirmed Type rosuvastatin 5 mg PO DAILY 11/21/19 11/21/19 History Allergies Allergy/AdvReac Type Severity Reaction Status Date / Time No Known Drug Allergies Allergy Verified 11/20/19 21:01 Review of Systems Review of Systems ROS: Yes All systems reviewed with the patient and are negative except as otherwise documented Exam Vital Signs (past 8 hours): - 11/21/19 12:56 11/21/19 13:41 11/21/19 14:00 Temperature 102.6 F H Pulse Rate 86 83 Respiratory Rate 28 H 27 H 23 Blood Pressure Pulse Oximetry 96 93 93 11/21/19 14:30 11/21/19 15:00 11/21/19 15:25 Temperature Pulse Rate 79 79 Respiratory Rate 27 H 28 H Blood Pressure 101/54 L 107/54 L Pulse Oximetry 93 92 96 11/21/19 15:30 11/21/19 16:18 11/21/19 16:30 Temperature Pulse Rate 74 74 79 Respiratory Rate 25 H 30 H 31 H Blood Pressure 107/56 L 114/55 L Pulse Oximetry 96 95 11/21/19 16:31 11/21/19 17:00 11/21/19 17:30 Temperature Pulse Rate 76 68 69 Respiratory Rate 26 H 19 23 Blood Pressure 121/55 L 111/59 L 118/56 L Pulse Oximetry 98 96 97 11/21/19 18:00 11/21/19 18:45 Temperature 98 F Pulse Rate 55 L 55 L Respiratory Rate 21 17 Blood Pressure 107/59 L 109/63 Pulse Oximetry 96 97 Oxygen Delivery Method Nasal Cannula Oxygen Flow Rate 2 Narrative Exam Narrative: GENERAL APPEARANCE: well developed, well nourished, in no acute distress. HEENT: Normocephalic, PERRLA, conjunctiva clear, EOMs intact without nystagmus, no sinus tenderness to percussion, no rhinorrhea, mucous membranes are moist and pink without lesions or exudate. NECK/THYROID: neck supple, no JVD, no carotid bruit, no thyromegaly, trachea midline. LYMPH NODES: no cervical or supraclavicular lymphadenopathy. SKIN: [place], warm and dry, no visible lesions, rashes, ulcerations or petechiae. HEART: Bradycardic heart rate with regular rhythm, S1-S2, no murmur, no rubs or gallops, brisk capillary refill, no edema LUNGS: clear to auscultation bilaterally, no coarseness crackles or wheezing, no cough present CHEST: Symmetrical movement, no accessory muscle use, good tidal volume. ABDOMEN: Soft, no distention, no abdominal tenderness, no guarding or peritoneal signs, no organomegaly, mild suprapubic tenderness, active bowel tones, well-healed surgical scar left groin. BACK: Normal curvature, nontender to palpation, no CVA or flank tenderness on percussion EXTREMITIES: moves all extremities, strength is 5/5 and symmetrical, no deformities or joint effusions. NEUROLOGIC: AAO x4, no focal neurologic deficits, cranial nerves II-XII grossly intact, sensation intact to light touch, hearing grossly normal to speech. PSYCH: Good judgment, good insight, linear thought process, cooperative, appropriate with stable behavior Objective Labs Result Diagrams: 11/21/19 13:53 11/21/19 13:53 Labs: Laboratory Results - last 24 hr 11/21/19 11/21/19 11/21/19 13:53 13:53 13:53 WBC 4.1 L RBC 4.27 L Hgb 13.4 L Hct 40.0 L MCV 93.6 MCH 31.3 MCHC 33.4 RDW 13.2 Plt Count 103 L Neut % (Auto) 85.2 H Lymph % (Auto) 7.6 L [place] % (Auto) 6.4 Eos % (Auto) 0.4 L Baso % (Auto) 0.4 Neut # (Auto) 3500 Lymph # (Auto) 300 L [place] # (Auto) 300 Eos # (Auto) 0 Baso # (Auto) 0 ESR Sodium 133 L Potassium 3.8 Chloride 103 Carbon Dioxide 20 L BUN 23 H Creatinine 0.85 Estimated GFR > 60.0 BUN/Creatinine Ratio 27.1 H Glucose 101 Lactate 2.2 H Calcium 8.7 Total Bilirubin 1.1 AST 32 ALT 19 Alkaline Phosphatase 86 C-Reactive Protein Total Protein 6.6 Albumin 3.4 L Globulin 3.2 Albumin/Globulin Ratio 1.1 Procalcitonin Urine Color Urine Appearance Urine pH Ur Specific [place] Urine Protein Urine Glucose (UA) Urine Ketones Urine Occult Blood Urine Nitrate Urine Bilirubin Urine Urobilinogen Ur Leukocyte Esterase Urine RBC Urine WBC Ur Squamous Epith Cells Amorphous Sediment Urine Bacteria Granular Casts Urine Mucus Ur Culture Indicated? COVID-19 PCR 11/21/19 11/21/19 11/21/19 13:53 13:53 13:53 WBC RBC Hgb Hct MCV MCH MCHC RDW Plt Count Neut % (Auto) Lymph % (Auto) [place] % (Auto) Eos % (Auto) Baso % (Auto) Neut # (Auto) Lymph # (Auto) [place] # (Auto) Eos # (Auto) Baso # (Auto) ESR 20 H Sodium Potassium Chloride Carbon Dioxide BUN Creatinine Estimated GFR BUN/Creatinine Ratio Glucose Lactate Calcium Total Bilirubin AST ALT Alkaline Phosphatase C-Reactive Protein 17.3 H Total Protein Albumin Globulin Albumin/Globulin Ratio Procalcitonin 5.47 H Urine Color Urine Appearance Urine pH Ur Specific [place] Urine Protein Urine Glucose (UA) Urine Ketones Urine Occult Blood Urine Nitrate Urine Bilirubin Urine Urobilinogen Ur Leukocyte Esterase Urine RBC Urine WBC Ur Squamous Epith Cells Amorphous Sediment Urine Bacteria Granular Casts Urine Mucus Ur Culture Indicated? COVID-19 PCR 11/21/19 11/21/19 11/21/19 14:43 16:26 16:42 WBC RBC Hgb Hct MCV MCH MCHC RDW Plt Count Neut % (Auto) Lymph % (Auto) [place] % (Auto) Eos % (Auto) Baso % (Auto) Neut # (Auto) Lymph # (Auto) [place] # (Auto) Eos # (Auto) Baso # (Auto) ESR Sodium Potassium Chloride Carbon Dioxide BUN Creatinine Estimated GFR BUN/Creatinine Ratio Glucose Lactate 0.9 Calcium Total Bilirubin AST ALT Alkaline Phosphatase C-Reactive Protein Total Protein Albumin Globulin Albumin/Globulin Ratio Procalcitonin Urine Color Yellow Urine Appearance Clear Urine pH 5.0 Ur Specific [place] 1.020 Urine Protein 1+ H Urine Glucose (UA) Negative Urine Ketones 3+ H Urine Occult Blood Trace-lysed Urine Nitrate Negative Urine Bilirubin Negative Urine Urobilinogen 0.2 Ur Leukocyte Esterase 1+ H Urine RBC 0-1/hpf Urine WBC 30-100/hpf H Ur Squamous Epith Cells 1-5 /hpf Amorphous Sediment 2+ Urine Bacteria Moderate (10-30) H Granular Casts 1-5/lpf Urine Mucus 2+ H Ur Culture Indicated? Specimen cultured COVID-19 PCR Negative Assessment & Plan Assessment & Plan narrative: This is a 73-year-old male who was evaluated in the ER yesterday diagnosed with pyelonephritis treated and discharged home only to return today with recurrent rigors and fever. 1. Pyelonephritis, acute, present on admission, active. -patient initial complaint was frequency and urgency with history of shaking chills without fever in the emergency room on 11/20/2019. Patient is treated with ceftriaxone and discharged with Keflex which he had not yet obtained. The patient returns today with a temperature of 102.6? and rigors without nausea vomiting and no complaints of flank pain. -CT identifies mild bilateral perinephritic stranding without obstruction. Urinalysis is positive for WBCs, leukocyte esterase, many bacteria. G stain from urine culture obtained on 11/20/2019 is positive for greater than 100,000 colony-forming units of gram-negative bacilli. Patient has white count of 4.1 with 85.2% neutrophils, ESR 20, CRP 17.3, lactic acid 2.2 improved to 0.9 with fluids. BUN is 23 and creatinine is 0.85 with her BUN/Cr ratio 24.1. -in the ER the patient was given cefepime following blood cultures which has been broadened to meropenem 1 g IV every 8 hours. -ordered Tylenol 650 mg every 4 hours as needed for fever or mild pain -ordered Toradol 15 mg IV as needed every 6 hours for fever unresponsive to Tylenol or moderate pain. -IV fluid normal saline at 100 cc/hour. 2. Hyperlipidemia, chronic, stable. -will continue home regimen of rosuvastatin 5 mg daily. VTE prophylaxis: Bilateral SCDs, enoxaparin IV fluids: Normal saline 100 cc/hour Diet: Heart healthy Code status: FULL CODE, patient states wish for no prolonged life-sustaining treatment, his Nina is surrogate decision maker. The patient is admitted to the hospital due to the severity of his symptoms failure with outpatient treatment. The patient is admitted as observation with expected length of stay to be less than 2 midnights. COVID-19 COVID-19 status: Negative Result date/Date tested (Pos, Neg/Pending): 11/21/19 Scores GCS [place] coma scale eye opening: Spontaneous [place] coma scale verbal response: Orientated [place] coma scale motor response: Obey commands [place] coma scale total score: 15
[2019-11-21] MEDS: MEROPENEM 1 GM/50 ML PIGGYBACK IV (20:42)
[2019-11-21] MEDS: SODIUM CHLORIDE 0.9% 1,000 ML 100 ML IV (20:44)
[2019-11-22] MEDS: SODIUM CHLORIDE 0.9% 1,000 ML 100 ML IV (03:10)
[2019-11-22] MEDS: MEROPENEM 1 GM/50 ML PIGGYBACK IV ×2 (03:10→10:17)
[2019-11-22 03:15] VITALS: BP 123/67; PULSE 53; RESP 18; TEMP 36.4; O2SAT 93
[2019-11-22 06:12] LABS: Add Manual Diff / Slide Review NO; Basophils Absolute Auto 0 /uL (0-100); Basophils Percent Auto 0.4 % (0-2); Eosinophils Absolute Auto 100 /uL (0-450); Eosinophils Percent Auto 1.8 % (2-4); Hematocrit 37.5 % (41-53); Hemoglobin 12.5 g/dL (13.5-17.5); Lymphocytes Absolute Auto 800 /uL (1100-4500); Lymphocytes Percent Auto 21.3 % (25-40); Mean Corpuscular HGB Conc 33.3 % (30-36); Mean Corpuscular Hemoglobin 31.6 PG (26-34); Mean Corpuscular Volume 94.7 fL (80-100); Monocytes Absolute Auto 600 /uL (0-900); Monocytes Percent Auto 16.4 % (3-14); Neutrophils Absolute Auto 2200 /uL (1500-7000); Neutrophils Percent Auto 60.1 % (50-75); Platelet Count 100 X10^3/uL (150-400); Red Blood Cell Count 3.96 X10^6/uL (4.5-5.9); Red Cell Distribution Width 13.3 % (11.6-14.8); White Blood Cell Count 3.7 X10^3/uL (4.5-11.0)
[2019-11-22 06:21] LABS: BUN Creatinine Ratio 21.9 (6-22); Blood Urea Nitrogen 16 mg/dL (9-20); Calcium 8.2 mg/dL (8.4-10.2); Carbon Dioxide 22 mmol/L (22-32); Chloride 109 mmol/L (98-107); Estimated Glomerular Filt Rate > 60.0 mL/min (>60); Glucose 92 mg/dL (80-110); HEMOLYSIS < 15 (0-50); Magnesium 1.8 mg/dL (1.6-2.3); Potassium 3.8 mmol/L (3.4-5.1); Sodium 136 mmol/L (137-145)
[2019-11-22 07:56] VITALS: BP 123/69; PULSE 50; RESP 18; TEMP 36.2; O2SAT 96
[2019-11-22] MEDS: ENOXAPARIN 40 MG/0.4 ML SYRINGE SUBCUT (08:35)
[2019-11-22] MEDS: ROSUVASTATIN 10 MG TABLET 5 MG PO (08:36)
--- NOTE | 2019-11-22 10:32 | CM.DANOTE ---
Patient is a 73 year old male who was admitted on 11/21/19 for Chills/rigors. Pt has [facility] for insurance and his PCP is not listed and in [place]. EMR was reviewed. Per MD, pt came to ED yesterday and discharged home but failed outpt and returned to ED and now admitted for Pyelonephritis and received IV-Abx and stable for d/c home with oral abx later today. SW met bedside with pt and spouse and explained role and he confirms he lives in [place] with his and vacations regularly in [place] on their boat for many years. Pt is independent at baseline and denies any hx of HH or SNF and DPOA is his spouse. Pt quite active and comfortable with plan to d/c home later today after final dose of IV medication and informed RN his preferred pharmacy and spouse agreeable with transporting pt home later today. No anticipated needs at this time. Plan: SW to follow for patient d/c home via spouse POV early this afternoon on oral abx. No SW needs at this time. ALEXSANDER Gates Discharge Planning/Care Management CM Discharge Assessment Start: 11/22/19 10:30 Freq: Status: Active Protocol: Document 11/22/19 10:30 BF (Rec: 11/22/19 10:32 BF [id number]) Discharge Planning Assessment Assigned Model Maker Plaster ALEXSANDER Dean DPOA/Assigned Designee Name levi Wood Contact Information [phone] Advance Directives? No Advance Directives on File No History Provided By Patient,Significant Other, Medical Record Has Patient been admitted in last 30 No days? Prior Living Arrangements House Household Members spouse Type of transporation used prior to Drives own vehicle admit Comment Lives in [place] with spouse and vacation regularly in [place] on thier boat at the [place] and around the [facility] Independent with ADL's Yes Is patient alert and oriented? Yes Caregiver for Another No Barriers to Discharge No Discharge Plan Home Transportation Arrangement Spouse bedside and can provide transport Referrals Initiated None needed Whiteboard Updated in Patient Room with Yes name and ext. # of Model Maker Plaster Review Status In Process Please Provide Date Initial DC 11/22/19 Assessment Was Performed Next Review Type Continued Stay Review
--- NOTE | 2019-11-22 10:40 | PM.DS.1 ---
History of Present Illness History of Present Illness Date Patient Seen: 11/22/19 Time Patient Seen: 10:40 Chief complaint: here lastnight/ drip antibiotic/ cold Narrative: As per [facility] [place]: Mr. Ian Stapleton is a 73-year-old male with a history of hyperlipidemia who returns to the ER with a sudden onset of recurrent fevers and chills with associated rigors. The patient is in [place] and staying on his boat and postponed trip to the [facility] presenting to the ER yesterday 11/20/2019 for shaking chills without fever. The patient was evaluated in the emergency department and diagnosed with pyelonephritis and received Rocephin IV and prescription for Keflex for 7 days and discharged to home. The patient had not yet picked up his Keflex prescription and states he has been taking Tylenol with resolution of fevers and chills. Today upon arrival the patient has an elevated temp of 102.6? and reporting rigors. He denies complaints of nausea vomiting and has no back pain. Gram stain from urine sample obtained yesterday shows Gram-positive bacilli and greater than 100,000 CFU. The patient reports frequency and urgency leading to his ER visit yesterday but no other history of urological symptoms. He denies complaints of headaches or dizziness, nasal congestion or sore throat. Denies chest pain or palpitations and has no shortness of breath cough or wheezing. Patient reports no epigastric or abdominal pain, nausea or vomiting or diarrhea. The patient is physically active with no limitations. On arrival the ER patient is febrile with temperature 102.6?, heart rate of 79, pressure 101/54, respirations 20 an oxygen saturation 96% on room air. Imaging is obtained was CT of the abdomen pelvis finding mild perinephritic stranding, possibly chronic, no obstruction, ill-defined left inguinal stranding, incidental colonic diverticulosis. Twelve lead EKG shows a sinus rhythm without ectopy, left anterior fascicular block, no ischemia or infarct. On laboratory analysis the patient has white count 4.1 with elevated neutrophils at 85.2%, hemoglobin 13.4, hematocrit 40.0 and platelets of 103. Labs obtained yesterday find a white count of 8.0, platelets of 133 with 13.0 bands and neutrophils at 80.0%. On chemistries is sodium 133 with potassium 3.8, BUN of 23 and creatinine 0.85. His liver functions are all within normal limits with an albumin of 3.4. He has an elevated ESR at 20, CRP at 17.3. Lactate on admission was 2.2 improved to 0.9 with 2 L normal saline. In the ER the patient received cefepime after blood cultures obtained. The patient is admitted to the medicine service for pyelonephritis. Discharge Providers Provider Date of admission: 11/21/19 18:03 Discharge Date: 11/22/19 Consults: 11/21/19 19:44 Consult to Discharge Planning Routine Comment: Discharge provider: Jason Mahoney DO Summary Hospital Course Discharge Diagnosis: 1. Pyelonephritis, acute, present on admission, active. 2. Hyperlipidemia, chronic, stable. Hospital Course: Patient was admitted to the hospital for presumed pyelonephritis. CT of his abdomen showed nonspecific inflammation around prior hernias, but no inflammation is kidneys and no inflammation around his prostate. He had received a dose of ceftriaxone the day before the emergency room and was empirically broadened to meropenem to cover for ESBL organisms given presentation with mild hypotension and fever to 103 despite dose of ceftriaxone. Urine cultures obtained on his initial ER visit ultimately grew pansensitive E coli. Repeat urine cultures upon his 2nd arrival to the emergency room are currently without gross. The patient had no further symptoms, was feeling well, and tolerating a diet without abdominal pain or flank pain. He was discharged home with a week's prescription of ciprofloxacin to treat presumed pyelonephritis, but also treat for the possibility of early prostatitis. He was recommended to follow-up with his primary care provider if symptoms returned for the possibility 6 weeks of antibiotic therapy for possible prostatitis. Patient was discharged home. Exam Vital Signs (past 8 hours): - 11/22/19 03:15 11/22/19 07:56 Temperature 97.5 F L 97.2 F L Pulse Rate 53 L 50 L Respiratory Rate 18 18 Blood Pressure 123/67 123/69 Pulse Oximetry 93 96 Oxygen Delivery Method Room Air Oxygen Flow Rate 0 Narrative Exam Narrative: GENERAL APPEARANCE: Well developed, well nourished, in no acute distress. SKIN: Inspection of the skin reveals no rashes, ulcerations or petechiae. HEENT: Normocephalic atraumatic, extraocular muscles are intact, oropharynx is clear and mucous membranes are moist, neck is supple without adenopathy NECK: Supple and symmetric. There was no thyroid enlargement, and no tenderness, or masses were felt. CHEST: Normal AP diameter and normal contour without any kyphoscoliosis. LUNGS: Auscultation of the lungs revealed no wheezes, rhonchi, or rales. CARDIOVASCULAR: There was a regular rate and rhythm without any murmurs, gallops, rubs. Peripheral pulses were 2+ and symmetric. ABDOMEN: Soft and nontender with normal bowel sounds. No ascites was noted. MUSCULOSKELETAL: There was no tenderness or effusions noted. Muscle strength and tone were normal. EXTREMITIES: No cyanosis, clubbing or edema. NEUROLOGIC: Alert and oriented x 3. Normal affect. Gait was normal. Strength is +5/5 in the Upper Extremities and Lower Extremities Bilaterally. Sensation to touch was normal. Objective Labs Result Diagrams: 11/22/19 05:40 11/22/19 05:40 Labs: Laboratory Results - last 24 hr 11/21/19 11/21/19 11/21/19 13:53 13:53 13:53 WBC 4.1 L RBC 4.27 L Hgb 13.4 L Hct 40.0 L MCV 93.6 MCH 31.3 MCHC 33.4 RDW 13.2 Plt Count 103 L Neut % (Auto) 85.2 H Lymph % (Auto) 7.[address] % (Auto) 6.4 Eos % (Auto) 0.4 L Baso % (Auto) 0.4 Neut # (Auto) 3500 Lymph # (Auto) [address] # (Auto) 300 Eos # (Auto) 0 Baso # (Auto) 0 ESR Sodium 133 L Potassium 3.8 Chloride 103 Carbon Dioxide 20 L BUN 23 H Creatinine 0.85 Estimated GFR > 60.0 BUN/Creatinine Ratio 27.1 H Glucose 101 Lactate 2.2 H Calcium 8.7 Magnesium Total Bilirubin 1.1 AST 32 ALT 19 Alkaline Phosphatase 86 C-Reactive Protein Total Protein 6.6 Albumin 3.4 L Globulin 3.2 Albumin/Globulin Ratio 1.1 Procalcitonin Urine Color Urine Appearance Urine pH Ur Specific [place] Urine Protein Urine Glucose (UA) Urine Ketones Urine Occult Blood Urine Nitrate Urine Bilirubin Urine Urobilinogen Ur Leukocyte Esterase Urine RBC Urine WBC Ur Squamous Epith Cells Amorphous Sediment Urine Bacteria Granular Casts Urine Mucus Ur Culture Indicated? COVID-19 PCR 11/21/19 11/21/19 11/21/19 13:53 13:53 13:53 WBC RBC Hgb Hct MCV MCH MCHC RDW Plt Count Neut % (Auto) Lymph % (Auto) [place] % (Auto) Eos % (Auto) Baso % (Auto) Neut # (Auto) Lymph # (Auto) [facility] # (Auto) Eos # (Auto) Baso # (Auto) ESR 20 H Sodium Potassium Chloride Carbon Dioxide BUN Creatinine Estimated GFR BUN/Creatinine Ratio Glucose Lactate Calcium Magnesium Total Bilirubin AST ALT Alkaline Phosphatase C-Reactive Protein 17.3 H Total Protein Albumin Globulin Albumin/Globulin Ratio Procalcitonin 5.47 H Urine Color Urine Appearance Urine pH Ur Specific [place] Urine Protein Urine Glucose (UA) Urine Ketones Urine Occult Blood Urine Nitrate Urine Bilirubin Urine Urobilinogen Ur Leukocyte Esterase Urine RBC Urine WBC Ur Squamous Epith Cells Amorphous Sediment Urine Bacteria Granular Casts Urine Mucus Ur Culture Indicated? COVID-19 PCR 11/21/19 11/21/19 11/21/19 14:43 16:26 16:42 WBC RBC Hgb Hct MCV MCH MCHC RDW Plt Count Neut % (Auto) Lymph % (Auto) [facility] % (Auto) Eos % (Auto) Baso % (Auto) Neut # (Auto) Lymph # (Auto) [facility] # (Auto) Eos # (Auto) Baso # (Auto) ESR Sodium Potassium Chloride Carbon Dioxide BUN Creatinine Estimated GFR BUN/Creatinine Ratio Glucose Lactate 0.9 Calcium Magnesium Total Bilirubin AST ALT Alkaline Phosphatase C-Reactive Protein Total Protein Albumin Globulin Albumin/Globulin Ratio Procalcitonin Urine Color Yellow Urine Appearance Clear Urine pH 5.0 Ur Specific [place] 1.020 Urine Protein 1+ H Urine Glucose (UA) Negative Urine Ketones 3+ H Urine Occult Blood Trace-lysed Urine Nitrate Negative Urine Bilirubin Negative Urine Urobilinogen 0.2 Ur Leukocyte Esterase 1+ H Urine RBC 0-1/hpf Urine WBC 30-100/hpf H Ur Squamous Epith Cells 1-5 /hpf Amorphous Sediment 2+ Urine Bacteria Moderate (10-30) H Granular Casts 1-5/lpf Urine Mucus 2+ H Ur Culture Indicated? Specimen cultured COVID-19 PCR Negative 11/22/19 11/22/19 05:40 05:40 WBC 3.7 L RBC 3.96 L Hgb 12.5 L Hct 37.5 L MCV 94.7 MCH 31.6 MCHC 33.3 RDW 13.3 Plt Count 100 L Neut % (Auto) 60.1 D Lymph % (Auto) 21.[address] % (Auto) 16.4 H Eos % (Auto) 1.8 L Baso % (Auto) 0.4 Neut # (Auto) 2200 Lymph # (Auto) [address] # (Auto) 600 Eos # (Auto) 100 Baso # (Auto) 0 ESR Sodium 136 L Potassium 3.8 Chloride 109 H Carbon Dioxide 22 BUN 16 Creatinine 0.73 Estimated GFR > 60.0 BUN/Creatinine Ratio 21.9 Glucose 92 Lactate Calcium 8.2 L Magnesium 1.8 Total Bilirubin AST ALT Alkaline Phosphatase C-Reactive Protein Total Protein Albumin Globulin Albumin/Globulin Ratio Procalcitonin Urine Color Urine Appearance Urine pH Ur Specific [place] Urine Protein Urine Glucose (UA) Urine Ketones Urine Occult Blood Urine Nitrate Urine Bilirubin Urine Urobilinogen Ur Leukocyte Esterase Urine RBC Urine WBC Ur Squamous Epith Cells Amorphous Sediment Urine Bacteria Granular Casts Urine Mucus Ur Culture Indicated? COVID-19 PCR Discharge Plan Discharge Plan Patient Disposition: Home Discharge comment: You were admitted to the hospital with a urinary tract infection. Given your high fever you are being prescribed an antibiotic which will treat your urine but may also treat an early infection in your prostate. If fevers return after completion of your antibiotics, or symptoms return (burning or frequency) you should follow up with your primary care provider as you may require 6 weeks of antibiotic therapy. Discharge orders & Medications Prescriptions: New ciprofloxacin HCl 500 mg tablet 500 mg PO Q12H 7 Days Qty: 14 RF: 0 Continued rosuvastatin 5 mg tablet 5 mg PO DAILY RF: 0 Diet/Activity/Treatments Diet: Diet as Tolerated Activity: As tolerated Visit Report/Discharge Packet Visit Report Forms: Patient Portal/API, Stroke Signs & Symptoms Discharge Data Attending Provider: Jason Mahoney Admit Date/Time: 11/21/19 18:03 Discharges patient from system. Discharge Date/Time: 11/22/19 12:45
[2019-11-22 11:13] VITALS: BP 113/62; PULSE 56; RESP 19; TEMP 36.3; O2SAT 97
--- NOTE | 2019-11-22 12:09 | PC.NURSE ---
Day shift note: Discharge home per MD instructions, discussed importance of F/U if new or worsening symptoms with PMD, antibiotic adherence and s/sx of infection. Verbalized understanding. Home with , via private vehicle in stable condition.
== END 2019-11-22 12:45 | disposition home or self-care (01) ==
LOC: ED 17:40 → AC 18:03
PROVIDERS: Admitting Provider Internal Medicine; Emergency Provider Emergency Medicine; Visit Provider Internal Medicine
DX: N11.9 Chronic tubulo-interstitial nephritis, unspecified (principal); R53.1 Weakness; R50.9 Fever, unspecified; E78.5 Hyperlipidemia, unspecified; B96.20 Unspecified Escherichia coli [E. coli] as the cause of diseases classified elsewhere; Z11.59 Encounter for screening for other viral diseases
CPT/HCPCS: 36415; 74177; 80048; 80053; 81001; 83605; 83735; 84145; 85025; 85651; 86140; 87040; 87086; 87635; 93005; 94762; 96361; 96365; 96366; 96367; 96372; 99284; G0378; J0692; J1650; Q9967